=== PATIENT | male | born 1980 | race African-American/Black ===

== ENCOUNTER 2019-08-06 11:16 | Emergency (ER) | payer MEDICAID ==
[~2019-08-06] VITALS: Ht 182.9 cm; Wt 105.0 kg
[2019-08-06 11:35] VITALS: BP 118/76
== END 2019-08-06 12:23 | disposition home or self-care (01) ==
LOC: ER 11:16
DX: Z48.02 Encounter for removal of sutures (principal); F17.200 Nicotine dependence, unspecified, uncomplicated
CPT/HCPCS: 99281; Z7610